=== PATIENT | female | born 1970 | race Caucasian/White ===

== ENCOUNTER → 2019-07-21 | Outpatient (CLI) | payer MEDICAID | END | disposition home or self-care (01) | LOC: CFH 10:01 | PROVIDERS: ATTEND Internal Medicine | DX: J98.6 Disorders of diaphragm (principal); J45.51 Severe persistent asthma with (acute) exacerbation | CPT/HCPCS: 71046 ==

== ENCOUNTER 2020-08-30 17:49 | Inpatient (IN) | payer MEDICAID ==
[~2020-08-30] VITALS: Ht 162.6 cm; Wt 91.5 kg
[2020-08-30] MEDS ORDERED: DILTIAZEM 5 MG/ML, 5ML ONE (18:15)
--- NOTE | 2020-08-30 18:15 | NUR ---
PT BIB POV. PT BROUGHT STRAIGHT BACK TO ROOM 34 DUE TO WORK OF BREATHING. PT STATES SHE FEELS SHORT OF BREATH. PT O2 SAT 85% ON 15L NRB, RESPIRATORY RATE 40. RT AT BEDSIDE TO INITIATE OPTIFLOW. EKG DONE, PT IN AFIB AT RATE OF 180BPM. 15MG OF CARDIZEM GIVEN PER EMAR, PT HEART RATE CURRENTLY 98BPM. PT REPORTS SHE IS CURRENTLY NOT ON ANY BLOOD THINNING MEDICATIONS. PT HAS HX OF AFIB AND ASTHMA. PT RESTING IN [facility], MONITORING IN PLACE. WCTM.
--- NOTE | 2020-08-30 18:15 | NUR ---
TASK RN: PIV STARTED, LABS DRAWN, 1ST SET OF BLOOD CULTURES DRAWN FROM PIV START.
--- NOTE | 2020-08-30 18:24 | NUR ---
PT 90-91% W/ OPTIFLOW 50L AT 100%
[2020-08-30] MEDS ORDERED: DILTIAZEM 5 MG/ML, 5ML IV ONE (18:30)
[2020-08-30] MEDS ORDERED: SODIUM CHLORIDE FLUSH 10ML SYR IVF ONE (18:30)
[2020-08-30 18:40] LABS: MEAN CORPUSCULAR HGB CONC 32.6 g/dL (32.4-35.8); MEAN PLATELET VOLUME 7.4 fL (7.4-10.4); PLATELET COUNT 383 x10^3/uL (130-400); RED BLOOD COUNT 4.95 x10^6/uL (3.82-5.3); RED CELL DISTRIBUTION WIDTH 15.2 % (9.6-15.2)
[2020-08-30 18:48] LABS: ALANINE AMINOTRANSFERASE 31 U/L (12-78); ALBUMIN 2.8 g/dL (3.4-5.0); ANION GAP 11 mmol/L (5-15); CALCIUM 8.8 mg/dL (8.5-10.1); CHLORIDE 117 mmol/L (98-107); CREATININE 1.21 mg/dL (0.55-1.02)
--- NOTE | 2020-08-30 18:52 | NUR ---
REPORT GIVEN TO DEVORAH HOOPER.
[2020-08-30 18:53] LABS: ALKALINE PHOSPHATASE 171 U/L (45-117); BILIRUBIN,TOTAL 1.7 mg/dL (0.2-1.0); TOTAL PROTEIN 7.8 g/dL (6.4-8.2)
[2020-08-30 18:58] LABS: TROPONIN I 0.151 ng/mL (0.000-0.045)
[2020-08-30 19:13] LABS: MD YES
[2020-08-30 19:15] LABS: LYMPH#(MANUAL) 0.45 x10^3/uL (1-3.4); LYMPHS% (MANUAL) 3 % (22-44); METAMYELOCYTES# (MANUAL) 0.15 x10^3/uL (0-0); METAMYELOCYTES% (MANUAL) 1 % (0-1); MONOS#(MANUAL) 1.04 x10^3/uL (0.3-2.7); MONOS% (MANUAL) 7 % (2-9)
[2020-08-30 19:17] LABS: MYELOCYTES# (MANUAL) 0.15 x10^3/uL (0-0); MYELOCYTES% (MANUAL) 1 % (0-0)
[2020-08-30 19:18] LABS: OTHER CELLS % (MANUAL) 2 % (0-0)
[2020-08-30 19:19] LABS: BAND#(MANUAL) 0.45 x10^3/uL; BANDS%(MANUAL) 3 % (0-7)
[2020-08-30 19:20] LABS: SEGS% (MANUAL) 83 % (42-75)
[2020-08-30 19:23] LABS: <PLATELET ESTIMATE> ADEQUATE; <PLT MORPHOLOGY> NORMAL PLT MORPH; ANISOCYTOSIS 1+; OVALOCYTES 1+
[2020-08-30] MEDS ORDERED: POTASSIUM CHLORIDE 40 MEQ in SODIUM CHLORIDE 0.9% 500 ML IV ONE (19:30)
[2020-08-30] MEDS ORDERED: CEFTRIAXONE PMX 1GM/50ML 50 ML IV ONE (19:30)
[2020-08-30] MEDS ORDERED: CEFTRIAXONE PMX 1GM/50ML 50 ML ONE (19:30)
[2020-08-30] MEDS ORDERED: DOXYCYCLINE 100 MG in DEXTROSE 5% 250 ML IV SCH (19:30)
--- NOTE | 2020-08-30 20:12 | NUR ---
Pt calm in bed, A&O x 3. Pt with minimal labored breathing. Tolerating High flow cannula well. HR 90-100's. BP stable . Covid test sent to lab, Abx infusing. Attempting second line Repeat EKG done. Pt denies any more at this time. Will continue to monitor.
[2020-08-30] MEDS ORDERED: ASPIRIN 81 MG TABLET CHEW PO ONE (20:30)
[2020-08-30] MEDS ORDERED: ASPIRIN 81 MG TABLET CHEW ONE (20:44)
[2020-08-30] MEDS ORDERED: SODIUM CHLORIDE 0.9% 1,000 ML IV SCH (21:00)
[2020-08-30] MEDS ORDERED: ONDANSETRON ODT 4 MG PO PRN (21:00)
[2020-08-30] MEDS ORDERED: NITROGLYCERIN 0.4 MG BOTTLE (25 TABS) SL PRN (21:00)
[2020-08-30] MEDS ORDERED: BISACODYL 10 MG SUPP PR PRN (21:00)
--- NOTE | 2020-08-30 21:38 | NUR ---
Flu swab sent. K+ and Doxy infusing. Pt remains A&O, minimal distress. Tolerating high-flow NC well. Will continue to monitor.
--- NOTE | 2020-08-30 21:40 | NUR ---
Spoke with Irving SANTACRUZ about CT for patient. Decision to wait on CT d/t pt respiratory status, and concerns for lying patient down. Will attempt CT at a later time.
[2020-08-30 21:53] LABS: RAPID INFLUENZA A Negative (Negative); RAPID INFLUENZA B Negative (Negative)
[2020-08-30] MEDS: AZITHROMYCIN 500 MG in SODIUM CHLORIDE 0.9% 250 ML IV SCH (22:00)
--- NOTE | 2020-08-30 22:18 | NUR ---
Report to Chintan FAIRCHILD. Pt to room 507. [address] on [address]
[2020-08-30 22:43] VITALS: BP 99/64
[2020-08-30] MEDS: DILTIAZEM 125 MG in SODIUM CHLORIDE 0.9% 100 ML IV SCH (23:24)
[2020-08-30] MEDS: PLEASE ENTER ALLERGIES MC SCH (23:37)
[2020-08-31 01:07] LABS: TROPONIN I 0.154 ng/mL (0.000-0.045)
[2020-08-31 01:59] VITALS: BP 127/84
[2020-08-31] MEDS: PLEASE ENTER ALLERGIES MC SCH (03:00)
[2020-08-31 05:03] LABS: MEAN CORPUSCULAR HEMOGLOBIN 27.8 pg (27.0-34.8); MEAN CORPUSCULAR HGB CONC 32.7 g/dL (32.4-35.8); MEAN PLATELET VOLUME 7.3 fL (7.4-10.4); PLATELET COUNT 313 x10^3/uL (130-400); RED BLOOD COUNT 4.09 x10^6/uL (3.82-5.3); RED CELL DISTRIBUTION WIDTH 15.1 % (9.6-15.2)
[2020-08-31 05:52] LABS: MD YES
[2020-08-31 05:54] LABS: <PLATELET ESTIMATE> ADEQUATE; <PLT MORPHOLOGY> NORMAL PLT MORPH; ANISOCYTOSIS 1+; LYMPH#(MANUAL) 0.76 x10^3/uL (1-3.4); LYMPHS% (MANUAL) 6 % (22-44); MONOS#(MANUAL) 0.88 x10^3/uL (0.3-2.7); MONOS% (MANUAL) 7 % (2-9); MYELOCYTES# (MANUAL) 0.25 x10^3/uL (0-0); MYELOCYTES% (MANUAL) 2 % (0-0); OVALOCYTES 1+; SEG#(MANUAL) 10.71 x10^3/uL (1.8-6.8); SEGS% (MANUAL) 85 % (42-75)
[2020-08-31] MEDS ORDERED: ASPIRIN 81 MG TABLET EC PO SCH (06:00)
[2020-08-31 07:00] VITALS: BP 130/84
[2020-08-31 07:15] LABS: ALBUMIN 2.2 g/dL (3.4-5.0); ANION GAP 11 mmol/L (5-15); CALCIUM 7.9 mg/dL (8.5-10.1); CHLORIDE 122 mmol/L (98-107)
[2020-08-31 07:23] LABS: ALANINE AMINOTRANSFERASE 40 U/L (12-78); ALKALINE PHOSPHATASE 150 U/L (45-117); BILIRUBIN,TOTAL 1.8 mg/dL (0.2-1.0); CHOL/HDL RATIO 4.4; CHOLESTEROL, TOTAL 109 mg/dL (140-239); CREATININE 0.98 mg/dL (0.55-1.02); HDL CHOL % 23 % (28-40); HDL CHOLESTEROL (DIRECT) 25 mg/dL (40-60); LDL CHOLESTEROL,CALCULATED 59 mg/dL (54-169); LDL/HDL RATIO 2.4 (0.5-3.0); TOTAL PROTEIN 6.3 g/dL (6.4-8.2); TRIGLYCERIDES 123 mg/dL (50-200); TROPONIN I 0.104 ng/mL (0.000-0.045); VLDL CHOLESTEROL 25 mg/dL (0-25)
[2020-08-31] MEDS: SENNA/DOCUSATE TABLET PO SCH (07:59)
[2020-08-31] MEDS ORDERED: PIPERACILLIN/TAZO/PMX 3.375GM 50 ML IV SCH (08:30)
[2020-08-31] MEDS ORDERED: VANCOMYCIN PER PHARMACY MC PRN (08:30)
[2020-08-31] MEDS ORDERED: PHARMACOKINETIC CONSULTATION MC ONE (09:00)
[2020-08-31] MEDS ORDERED: VANCOMYCIN 2,500 MG in SODIUM CHLORIDE 0.9% 500 ML IV ONE (09:00)
[2020-08-31] MEDS ORDERED: PHARMACOKINETIC MONITORING MC PRN (09:00)
[2020-08-31] MEDS ORDERED: FILTER 0.22 MICRON IV PRN (09:30)
[2020-08-31] MEDS: DILTIAZEM 125 MG in SODIUM CHLORIDE 0.9% 100 ML IV SCH (09:36)
[2020-08-31] MEDS: CEFTRIAXONE PMX 2GM/50ML 50 ML IVPB SCH (09:36)
[2020-08-31] MEDS ORDERED: ENOXAPARIN 40 MG/0.4 ML SQ SCH (10:00)
[2020-08-31] MEDS ORDERED: OMNIPAQUE 350 MG/ML, 100ML BOTTLE ONE (10:51)
[2020-08-31] MEDS: THIAMINE 100MG TABLET PO SCH (11:30)
[2020-08-31] MEDS ORDERED: REMDESIVIR 200 MG in SODIUM CHLORIDE 0.9% 250 ML IVPB ONE (12:00)
[2020-08-31] MEDS ORDERED: DEXAMETHASONE 4 MG/ML, 1ML IVPush SCH (12:00)
[2020-08-31] MEDS: CHOLECALCIFEROL 5,000u TAB PO SCH (12:00)
[2020-08-31] MEDS: ZINC SULFATE 220 MG CAPSULE PO SCH (12:00)
[2020-08-31] MEDS: LORazepam 2 MG/ML, 1ML IVPush PRN (12:03)
[2020-08-31] MEDS ORDERED: LIDOCAINE-MPF 1%, 2ML ENDO PRN (13:00)
[2020-08-31] MEDS ORDERED: PROPOFOL 10 MG/ML, 20ML IV ONE (13:00)
[2020-08-31] MEDS ORDERED: ROCURONIUM 10 MG/ML,10ML IVPush ONE (13:00)
[2020-08-31] MEDS ORDERED: AMIODARONE 150 MG in DEXTROSE 5% 97 ML IVPB ONE (13:00)
[2020-08-31] MEDS ORDERED: ENOXAPARIN 120MG/0.8ML SQ SCH (13:00)
[2020-08-31] MEDS ORDERED: PHARMACY MAY ADJ FOR RENAL FX MC SCH (13:00)
[2020-08-31] MEDS: AMIODARONE 450 MG in DEXTROSE 5% 241 ML IV PRN ×2 (13:01→18:29)
[2020-08-31] MEDS ORDERED: SODIUM BICARB 8.4%, 50ML SYRINGE ONE (13:58)
[2020-08-31] MEDS ORDERED: SODIUM BICARBONATE 1 MEQ/ML, 50ML VIAL IVPush ONE ×2 (14:00→14:15)
[2020-08-31] MEDS ORDERED: ALBUMIN HUMAN 25% 100 ML ONE (14:22)
[2020-08-31] MEDS ORDERED: ENOXAPARIN 80 MG/0.8 ML SQ ONE (14:30)
[2020-08-31] MEDS ORDERED: ALBUMIN HUMAN 25% 100 ML IV ONE ×2 (15:00→16:00)
[2020-08-31] MEDS ORDERED: LABETALOL 5MG/ML, 20ML IVPush PRN (16:00)
[2020-08-31] MEDS ORDERED: hydrALAzine 20 MG/ML, 1ML IVPush PRN (16:00)
[2020-08-31] MEDS: PROPOFOL 100 ML IV PRN ×3 (16:35→22:56)
[2020-08-31] MEDS: ASCORBIC ACID 500 MG TABLET PO SCH (16:43)
[2020-08-31] MEDS: FENTANYL PF 1,000 MCG in SODIUM CHLORIDE 0.9% 80 ML IV PRN (17:12)
[2020-08-31] MEDS ORDERED: ROCURONIUM 10MG/ML,5ML ONE (18:00)
[2020-08-31] MEDS ORDERED: PROPOFOL 10 MG/ML, 100ML IV ONE (18:00)
[2020-08-31] MEDS ORDERED: PROPOFOL 10 MG/ML, 20ML ONE (18:00)
[2020-08-31] MEDS ORDERED: SODIUM CHLORIDE 0.9% PF 10ML ONE (18:00)
[2020-08-31] MEDS: ALBUTEROL/IPRATROPIUM 2.5MG/0.5MG, 3 ML INLINE SCH ×2 (18:45→23:00)
[2020-08-31] MEDS ORDERED: CEFTRIAXONE PMX 1GM/50ML 50 ML IV SCH (20:00)
[2020-08-31] MEDS: AZITHROMYCIN 500 MG in SODIUM CHLORIDE 0.9% 250 ML IV SCH (22:20)
[2020-08-31] MEDS: ENOXAPARIN 120MG/0.8ML SQ SCH (22:56)
[2020-09-01] MEDS ORDERED: SODIUM CHLORIDE 0.9%, 500ML IVBOLUS ONE (00:30)
[2020-09-01] MEDS ORDERED: AMIODARONE 150 MG in DEXTROSE 5% 100 ML IV ONE (00:30)
[2020-09-01] MEDS: PROPOFOL 100 ML IV PRN ×7 (01:48→22:07)
[2020-09-01] MEDS: ALBUTEROL/IPRATROPIUM 2.5MG/0.5MG, 3 ML INLINE SCH ×6 (03:00→23:00)
[2020-09-01 04:33] LABS: MEAN CORPUSCULAR HEMOGLOBIN 27.9 pg (27.0-34.8); MEAN CORPUSCULAR HGB CONC 32.6 g/dL (32.4-35.8); MEAN PLATELET VOLUME 7.4 fL (7.4-10.4); PLATELET COUNT 278 x10^3/uL (130-400); RED BLOOD COUNT 3.28 x10^6/uL (3.82-5.3); RED CELL DISTRIBUTION WIDTH 15.2 % (9.6-15.2)
[2020-09-01 04:44] LABS: ALANINE AMINOTRANSFERASE 31 U/L (12-78); ALBUMIN 2.5 g/dL (3.4-5.0); ANION GAP 9 mmol/L (5-15); CALCIUM 7.4 mg/dL (8.5-10.1); CHLORIDE 123 mmol/L (98-107); CREATININE 0.94 mg/dL (0.55-1.02)
[2020-09-01 04:47] LABS: ALKALINE PHOSPHATASE 113 U/L (45-117); BILIRUBIN,TOTAL 1.4 mg/dL (0.2-1.0); TOTAL PROTEIN 6.2 g/dL (6.4-8.2)
[2020-09-01 05:04] LABS: MD YES
[2020-09-01 05:08] LABS: ANISOCYTOSIS 1+; BAND#(MANUAL) 0.35 x10^3/uL; BANDS%(MANUAL) 3 % (0-7); LYMPH#(MANUAL) 0.71 x10^3/uL (1-3.4); LYMPHS% (MANUAL) 6 % (22-44); MONOS#(MANUAL) 0.71 x10^3/uL (0.3-2.7); MONOS% (MANUAL) 6 % (2-9); POLYCHROMASIA 1+; SEG#(MANUAL) 10.03 x10^3/uL (1.8-6.8); SEGS% (MANUAL) 85 % (42-75)
[2020-09-01 05:09] LABS: <PLATELET ESTIMATE> ADEQUATE; <PLT MORPHOLOGY> NORMAL PLT MORPH; TEAR DROPS 1+
[2020-09-01] MEDS: AMIODARONE 450 MG in DEXTROSE 5% 241 ML IV PRN ×2 (05:26→16:14)
[2020-09-01] MEDS: ASPIRIN 81 MG TABLET CHEW PO SCH (05:54)
[2020-09-01] MEDS: FUROSEMIDE 40 MG/4 ML IV SCH ×2 (07:59→16:57)
[2020-09-01] MEDS: POTASSIUM CHLORIDE 20 MEQ PACKET PO SCH ×3 (07:59→20:09)
[2020-09-01] MEDS: ZINC SULFATE 220 MG CAPSULE PO SCH (08:57)
[2020-09-01] MEDS: SENNA/DOCUSATE TABLET PO SCH (08:57)
[2020-09-01] MEDS: ASCORBIC ACID 500 MG TABLET PO SCH ×2 (08:58→16:56)
[2020-09-01] MEDS: CHOLECALCIFEROL 5,000u TAB PO SCH (08:58)
[2020-09-01] MEDS: THIAMINE 100MG TABLET PO SCH (08:58)
[2020-09-01] MEDS: DEXAMETHASONE 4 MG/ML, 1ML IVPush SCH (08:58)
[2020-09-01] MEDS: FENTANYL PF 1,000 MCG in SODIUM CHLORIDE 0.9% 80 ML IV PRN (09:43)
[2020-09-01] MEDS: CEFTRIAXONE PMX 2GM/50ML 50 ML IVPB SCH (09:43)
[2020-09-01] MEDS: ENOXAPARIN 120MG/0.8ML SQ SCH ×2 (09:43→20:30)
[2020-09-01] MEDS: REMDESIVIR 100 MG in SODIUM CHLORIDE 0.9% 250 ML IVPB SCH (11:35)
[2020-09-01] MEDS: FILTER 0.22 MICRON IV PRN (16:14)
[2020-09-01] MEDS: AZITHROMYCIN 500 MG in SODIUM CHLORIDE 0.9% 250 ML IV SCH (20:09)
[2020-09-01] MEDS: ACETAMINOPHEN 325 MG TABLET PO PRN (22:12)
[2020-09-02] MEDS: PROPOFOL 100 ML IV PRN ×6 (01:28→23:24)
[2020-09-02] MEDS: FENTANYL PF 1,000 MCG in SODIUM CHLORIDE 0.9% 80 ML IV PRN ×2 (02:13→18:04)
[2020-09-02] MEDS: ALBUTEROL/IPRATROPIUM 2.5MG/0.5MG, 3 ML INLINE SCH ×6 (03:00→23:00)
[2020-09-02] MEDS: ASPIRIN 81 MG TABLET CHEW PO SCH (05:07)
[2020-09-02] MEDS: AMIODARONE 450 MG in DEXTROSE 5% 241 ML IV PRN ×2 (05:08→18:03)
[2020-09-02 05:23] LABS: CHLORIDE 120 mmol/L (98-107)
[2020-09-02 05:26] LABS: BASOPHILS % (AUTO) 0 % (0-1); EOSINOPHILS % (AUTO) 1 % (1-7); LYMPHOCYTES % (AUTO) 8 % (22-44); MEAN CORPUSCULAR HEMOGLOBIN 28.1 pg (27.0-34.8); MEAN CORPUSCULAR HGB CONC 32.7 g/dL (32.4-35.8); MEAN PLATELET VOLUME 7.8 fL (7.4-10.4); MONOCYTES % (AUTO) 7 % (2-9); NEUTROPHILS % (AUTO) 84 % (42-75); PLATELET COUNT 305 x10^3/uL (130-400); RED BLOOD COUNT 3.54 x10^6/uL (3.82-5.3); RED CELL DISTRIBUTION WIDTH 15.1 % (9.6-15.2)
[2020-09-02 05:30] LABS: ALANINE AMINOTRANSFERASE 32 U/L (12-78); ALBUMIN 2.5 g/dL (3.4-5.0); ALKALINE PHOSPHATASE 113 U/L (45-117); ANION GAP 10 mmol/L (5-15); BILIRUBIN,TOTAL 0.9 mg/dL (0.2-1.0); CALCIUM 7.7 mg/dL (8.5-10.1); CREATININE 0.98 mg/dL (0.55-1.02); TOTAL PROTEIN 6.2 g/dL (6.4-8.2)
[2020-09-02 06:31] LABS: MD SCAN
[2020-09-02] MEDS: FUROSEMIDE 40 MG/4 ML IV SCH ×2 (07:23→18:00)
[2020-09-02] MEDS: POTASSIUM CHLORIDE 20 MEQ PACKET PO SCH ×3 (07:23→20:54)
[2020-09-02] MEDS: ZINC SULFATE 220 MG CAPSULE PO SCH (09:01)
[2020-09-02] MEDS: THIAMINE 100MG TABLET PO SCH (09:01)
[2020-09-02] MEDS: CHOLECALCIFEROL 5,000u TAB PO SCH (09:01)
[2020-09-02] MEDS: FAMOTIDINE 20 MG TABLET PO/NG SCH ×2 (09:01→20:54)
[2020-09-02] MEDS: SENNA/DOCUSATE TABLET PO SCH (09:01)
[2020-09-02] MEDS: ASCORBIC ACID 500 MG TABLET PO SCH ×2 (09:02→18:00)
[2020-09-02] MEDS: DEXAMETHASONE 4 MG/ML, 1ML IVPush SCH (09:02)
[2020-09-02] MEDS: METHYLNALTREXONE 12 MG/0.6 ML SYR SQ SCH (09:10)
[2020-09-02] MEDS: CEFTRIAXONE PMX 2GM/50ML 50 ML IVPB SCH (09:53)
[2020-09-02] MEDS: ENOXAPARIN 120MG/0.8ML SQ SCH (09:53)
[2020-09-02] MEDS: REMDESIVIR 100 MG in SODIUM CHLORIDE 0.9% 250 ML IVPB SCH (11:41)
[2020-09-02] MEDS: ACETAMINOPHEN 325 MG TABLET PO PRN (11:45)
[2020-09-02] MEDS: AZITHROMYCIN 500 MG in SODIUM CHLORIDE 0.9% 250 ML IV SCH (20:54)
[2020-09-02] MEDS: ENOXAPARIN 100 MG/ML SQ SCH (20:55)
[2020-09-03] MEDS: ALBUTEROL/IPRATROPIUM 2.5MG/0.5MG, 3 ML INLINE SCH ×6 (03:00→23:20)
[2020-09-03] MEDS ORDERED: PIPERONYL BUTOXIDE/PYRETHRINS 4OZ. SHAMPOO TP SCH (04:30)
[2020-09-03 04:50] LABS: BASOPHILS % (AUTO) 1 % (0-1); EOSINOPHILS % (AUTO) 1 % (1-7); LYMPHOCYTES % (AUTO) 10 % (22-44); MEAN CORPUSCULAR HEMOGLOBIN 27.8 pg (27.0-34.8); MEAN PLATELET VOLUME 7.7 fL (7.4-10.4); MONOCYTES % (AUTO) 6 % (2-9); NEUTROPHILS % (AUTO) 83 % (42-75); PLATELET COUNT 314 x10^3/uL (130-400); RED BLOOD COUNT 3.95 x10^6/uL (3.82-5.3); RED CELL DISTRIBUTION WIDTH 15.5 % (9.6-15.2)
[2020-09-03 05:02] LABS: CHLORIDE 123 mmol/L (98-107)
[2020-09-03 05:11] LABS: ALANINE AMINOTRANSFERASE 29 U/L (12-78); ALBUMIN 2.5 g/dL (3.4-5.0); ALKALINE PHOSPHATASE 110 U/L (45-117); ANION GAP 8 mmol/L (5-15); BILIRUBIN,TOTAL 0.7 mg/dL (0.2-1.0); CALCIUM 7.9 mg/dL (8.5-10.1); CREATININE 0.92 mg/dL (0.55-1.02); TOTAL PROTEIN 6.7 g/dL (6.4-8.2); TRIGLYCERIDES 144 mg/dL (50-200)
[2020-09-03 05:54] LABS: MD SCAN
[2020-09-03] MEDS: ASPIRIN 81 MG TABLET CHEW PO SCH (05:54)
[2020-09-03] MEDS: FENTANYL PF 1,000 MCG in SODIUM CHLORIDE 0.9% 80 ML IV PRN ×2 (06:38→16:59)
[2020-09-03] MEDS ORDERED: POTASSIUM CHLORIDE 20 MEQ PACKET PO SCH ×2 (09:00)
[2020-09-03] MEDS: FUROSEMIDE 40 MG/4 ML IV SCH ×2 (09:00→17:17)
[2020-09-03] MEDS: SENNA/DOCUSATE TABLET PO SCH (09:01)
[2020-09-03] MEDS: FAMOTIDINE 20 MG TABLET PO/NG SCH ×2 (09:01→20:27)
[2020-09-03] MEDS: POTASSIUM CHLORIDE 20 MEQ PACKET PO SCH ×2 (09:01→20:27)
[2020-09-03] MEDS: ZINC SULFATE 220 MG CAPSULE PO SCH (09:02)
[2020-09-03] MEDS: ASCORBIC ACID 500 MG TABLET PO SCH ×2 (09:02→17:00)
[2020-09-03] MEDS: CHOLECALCIFEROL 5,000u TAB PO SCH (09:02)
[2020-09-03] MEDS: THIAMINE 100MG TABLET PO SCH (09:02)
[2020-09-03] MEDS: METHYLNALTREXONE 12 MG/0.6 ML SYR SQ SCH (09:03)
[2020-09-03] MEDS: ENOXAPARIN 100 MG/ML SQ SCH (09:04)
[2020-09-03] MEDS: AMIODARONE 450 MG in DEXTROSE 5% 241 ML IV PRN ×2 (09:04→22:36)
[2020-09-03] MEDS: DEXAMETHASONE 4 MG/ML, 1ML IVPush SCH (10:57)
[2020-09-03] MEDS: CEFTRIAXONE PMX 2GM/50ML 50 ML IVPB SCH (10:57)
[2020-09-03] MEDS: REMDESIVIR 100 MG in SODIUM CHLORIDE 0.9% 250 ML IVPB SCH (12:32)
[2020-09-03] MEDS: ACETAMINOPHEN 325 MG TABLET PO PRN ×2 (14:30→20:30)
[2020-09-03] MEDS: PROPOFOL 100 ML IV PRN ×2 (17:37→22:35)
[2020-09-03] MEDS ORDERED: ENOXAPARIN 80 MG/0.8 ML SQ SCH (21:00)
[2020-09-03] MEDS ORDERED: AZITHROMYCIN 500 MG in SODIUM CHLORIDE 0.9% 250 ML IV SCH (21:30)
[2020-09-03] MEDS: FILTER 0.22 MICRON IV PRN (22:36)
[2020-09-04] MEDS: PROPOFOL 100 ML IV PRN ×5 (02:37→23:12)
[2020-09-04] MEDS: ALBUTEROL/IPRATROPIUM 2.5MG/0.5MG, 3 ML INLINE SCH ×6 (03:17→23:00)
[2020-09-04] MEDS: FENTANYL PF 1,000 MCG in SODIUM CHLORIDE 0.9% 80 ML IV PRN ×3 (04:11→23:17)
[2020-09-04] MEDS: ASPIRIN 81 MG TABLET CHEW PO SCH (04:22)
[2020-09-04 04:58] LABS: CHLORIDE 119 mmol/L (98-107)
[2020-09-04 05:05] LABS: ALANINE AMINOTRANSFERASE 27 U/L (12-78); ALBUMIN 2.1 g/dL (3.4-5.0); ALKALINE PHOSPHATASE 102 U/L (45-117); ANION GAP 7 mmol/L (5-15); BILIRUBIN,TOTAL 0.8 mg/dL (0.2-1.0); CREATININE 0.95 mg/dL (0.55-1.02); TOTAL PROTEIN 6.7 g/dL (6.4-8.2)
[2020-09-04 07:00] LABS: BASOPHILS % (AUTO) 1 % (0-1); EOSINOPHILS % (AUTO) 2 % (1-7); LYMPHOCYTES % (AUTO) 8 % (22-44); MEAN CORPUSCULAR HEMOGLOBIN 27.8 pg (27.0-34.8); MEAN CORPUSCULAR HGB CONC 32.7 g/dL (32.4-35.8); MEAN PLATELET VOLUME 8.6 fL (7.4-10.4); MONOCYTES % (AUTO) 5 % (2-9); NEUTROPHILS % (AUTO) 84 % (42-75); PLATELET COUNT 294 x10^3/uL (130-400); RED BLOOD COUNT 3.54 x10^6/uL (3.82-5.3); RED CELL DISTRIBUTION WIDTH 15.6 % (9.6-15.2)
[2020-09-04 07:33] LABS: MD SCAN
[2020-09-04] MEDS: FUROSEMIDE 40 MG/4 ML IV SCH ×2 (09:12→17:34)
[2020-09-04] MEDS: DEXAMETHASONE 4 MG/ML, 1ML IVPush SCH (09:13)
[2020-09-04] MEDS: METHYLNALTREXONE 12 MG/0.6 ML SYR SQ SCH (09:19)
[2020-09-04] MEDS: ZINC SULFATE 220 MG CAPSULE PO SCH (09:21)
[2020-09-04] MEDS: FAMOTIDINE 20 MG TABLET PO/NG SCH ×2 (09:21→20:27)
[2020-09-04] MEDS: SENNA/DOCUSATE TABLET PO SCH (09:21)
[2020-09-04] MEDS: CHOLECALCIFEROL 5,000u TAB PO SCH (09:21)
[2020-09-04] MEDS: ENOXAPARIN 100 MG/ML SQ SCH ×2 (09:21→20:26)
[2020-09-04] MEDS: ASCORBIC ACID 500 MG TABLET PO SCH ×2 (09:22→17:35)
[2020-09-04] MEDS: THIAMINE 100MG TABLET PO SCH (09:22)
[2020-09-04] MEDS ORDERED: CEFTRIAXONE PMX 2GM/50ML 50 ML IVPB SCH (10:00)
[2020-09-04] MEDS: REMDESIVIR 100 MG in SODIUM CHLORIDE 0.9% 250 ML IVPB SCH (12:31)
[2020-09-05] MEDS: FILTER 0.22 MICRON IV PRN (01:49)
[2020-09-05] MEDS: AMIODARONE 450 MG in DEXTROSE 5% 241 ML IV PRN (01:49)
[2020-09-05] MEDS: ALBUTEROL/IPRATROPIUM 2.5MG/0.5MG, 3 ML INLINE SCH ×6 (02:59→22:54)
[2020-09-05 03:48] LABS: BASOPHILS % (AUTO) 1 % (0-1); EOSINOPHILS % (AUTO) 1 % (1-7); LYMPHOCYTES % (AUTO) 9 % (22-44); MEAN CORPUSCULAR HEMOGLOBIN 27.3 pg (27.0-34.8); MEAN CORPUSCULAR HGB CONC 31.4 g/dL (32.4-35.8); MEAN PLATELET VOLUME 8.9 fL (7.4-10.4); MONOCYTES % (AUTO) 7 % (2-9); NEUTROPHILS % (AUTO) 83 % (42-75); PLATELET COUNT 290 x10^3/uL (130-400); RED BLOOD COUNT 3.71 x10^6/uL (3.82-5.3); RED CELL DISTRIBUTION WIDTH 15.7 % (9.6-15.2)
[2020-09-05 04:00] LABS: ANION GAP 6 mmol/L (5-15); CALCIUM 8.1 mg/dL (8.5-10.1); CHLORIDE 117 mmol/L (98-107); CREATININE 0.98 mg/dL (0.55-1.02)
[2020-09-05] MEDS: PROPOFOL 100 ML IV PRN ×4 (04:08→19:54)
[2020-09-05 04:19] LABS: MD SCAN
[2020-09-05] MEDS: ASPIRIN 81 MG TABLET CHEW PO SCH (06:28)
[2020-09-05] MEDS: ZINC SULFATE 220 MG CAPSULE PO SCH (08:45)
[2020-09-05] MEDS: FAMOTIDINE 20 MG TABLET PO/NG SCH ×2 (08:46→20:38)
[2020-09-05] MEDS: SENNA/DOCUSATE TABLET PO SCH (08:46)
[2020-09-05] MEDS: THIAMINE 100MG TABLET PO SCH (08:46)
[2020-09-05] MEDS: FUROSEMIDE 40 MG/4 ML IV SCH ×2 (08:47→17:13)
[2020-09-05] MEDS: ASCORBIC ACID 500 MG TABLET PO SCH ×2 (08:47→17:13)
[2020-09-05] MEDS: SULFAMETH./TRIMETHOPRIM DS 800MG/160MG TABLET PO SCH ×3 (08:47→19:02)
[2020-09-05] MEDS: POTASSIUM CHLORIDE 20 MEQ PACKET PO SCH ×2 (08:47→20:38)
[2020-09-05] MEDS: POLYETHYLENE GLYCOL 17 GM PACKET PO PRN (08:48)
[2020-09-05] MEDS: CHOLECALCIFEROL 5,000u TAB PO SCH (08:49)
[2020-09-05] MEDS: DEXAMETHASONE 4 MG/ML, 1ML IVPush SCH (08:49)
[2020-09-05] MEDS: METHYLNALTREXONE 12 MG/0.6 ML SYR SQ SCH (08:55)
[2020-09-05] MEDS: ENOXAPARIN 100 MG/ML SQ SCH ×2 (08:55→20:38)
[2020-09-05] MEDS: AMIODARONE 200 MG TABLET PO SCH ×2 (08:55→20:39)
[2020-09-05] MEDS: FENTANYL PF 1,000 MCG in SODIUM CHLORIDE 0.9% 80 ML IV PRN ×2 (09:52→19:55)
[2020-09-05] MEDS: ACETAMINOPHEN 325 MG TABLET PO PRN (20:38)
[2020-09-06] MEDS: SULFAMETH./TRIMETHOPRIM DS 800MG/160MG TABLET PO SCH ×4 (00:44→17:40)
[2020-09-06] MEDS: PROPOFOL 100 ML IV PRN ×4 (00:44→16:03)
[2020-09-06] MEDS: ALBUTEROL/IPRATROPIUM 2.5MG/0.5MG, 3 ML INLINE SCH ×6 (02:51→23:00)
[2020-09-06] MEDS: FENTANYL PF 1,000 MCG in SODIUM CHLORIDE 0.9% 80 ML IV PRN ×2 (03:21→14:08)
[2020-09-06 03:52] LABS: BASOPHILS % (AUTO) 1 % (0-1); EOSINOPHILS % (AUTO) 0 % (1-7); LYMPHOCYTES % (AUTO) 9 % (22-44); MD NO; MEAN CORPUSCULAR HEMOGLOBIN 27.2 pg (27.0-34.8); MEAN CORPUSCULAR HGB CONC 31.5 g/dL (32.4-35.8); MEAN PLATELET VOLUME 8.6 fL (7.4-10.4); MONOCYTES % (AUTO) 9 % (2-9); NEUTROPHILS % (AUTO) 81 % (42-75); PLATELET COUNT 327 x10^3/uL (130-400); RED BLOOD COUNT 3.69 x10^6/uL (3.82-5.3); RED CELL DISTRIBUTION WIDTH 15.6 % (9.6-15.2)
[2020-09-06 03:58] LABS: ANION GAP 7 mmol/L (5-15); CALCIUM 8.1 mg/dL (8.5-10.1); CHLORIDE 117 mmol/L (98-107); TRIGLYCERIDES 152 mg/dL (50-200)
[2020-09-06] MEDS: ASPIRIN 81 MG TABLET CHEW PO SCH (05:43)
[2020-09-06] MEDS: ENOXAPARIN 100 MG/ML SQ SCH ×2 (08:47→20:42)
[2020-09-06] MEDS: METHYLNALTREXONE 12 MG/0.6 ML SYR SQ SCH (08:47)
[2020-09-06] MEDS: FAMOTIDINE 20 MG TABLET PO/NG SCH ×2 (08:48→20:42)
[2020-09-06] MEDS: FUROSEMIDE 40 MG/4 ML IV SCH (08:48)
[2020-09-06] MEDS: ASCORBIC ACID 500 MG TABLET PO SCH ×2 (08:48→16:02)
[2020-09-06] MEDS: DEXAMETHASONE 4 MG/ML, 1ML IVPush SCH (08:48)
[2020-09-06] MEDS: SENNA/DOCUSATE TABLET PO SCH (08:48)
[2020-09-06] MEDS: THIAMINE 100MG TABLET PO SCH (08:49)
[2020-09-06] MEDS: ZINC SULFATE 220 MG CAPSULE PO SCH (08:49)
[2020-09-06] MEDS: AMIODARONE 200 MG TABLET PO SCH ×2 (08:49→20:43)
[2020-09-06] MEDS: CHOLECALCIFEROL 5,000u TAB PO SCH (08:50)
[2020-09-06] MEDS: ACETAMINOPHEN 325 MG TABLET PO PRN (16:02)
[2020-09-07] MEDS: SULFAMETH./TRIMETHOPRIM DS 800MG/160MG TABLET PO SCH ×5 (00:42→23:38)
[2020-09-07] MEDS: ALBUTEROL/IPRATROPIUM 2.5MG/0.5MG, 3 ML INLINE SCH ×6 (02:59→23:00)
[2020-09-07 05:06] LABS: BASOPHILS % (AUTO) 0 % (0-1); EOSINOPHILS % (AUTO) 2 % (1-7); LYMPHOCYTES % (AUTO) 9 % (22-44); MEAN CORPUSCULAR HEMOGLOBIN 27.5 pg (27.0-34.8); MEAN CORPUSCULAR HGB CONC 31.4 g/dL (32.4-35.8); MEAN PLATELET VOLUME 8.6 fL (7.4-10.4); MONOCYTES % (AUTO) 10 % (2-9); NEUTROPHILS % (AUTO) 79 % (42-75); PLATELET COUNT 358 x10^3/uL (130-400); RED BLOOD COUNT 3.81 x10^6/uL (3.82-5.3); RED CELL DISTRIBUTION WIDTH 15.5 % (9.6-15.2)
[2020-09-07 05:15] LABS: ANION GAP 5 mmol/L (5-15); CALCIUM 8.3 mg/dL (8.5-10.1); CHLORIDE 119 mmol/L (98-107); CREATININE 1.09 mg/dL (0.55-1.02)
[2020-09-07 05:49] LABS: MD SCAN
[2020-09-07] MEDS: ASPIRIN 81 MG TABLET CHEW PO SCH (06:10)
[2020-09-07] MEDS: PROPOFOL 100 ML IV PRN ×3 (06:10→23:39)
[2020-09-07] MEDS ORDERED: POTASSIUM CHLORIDE 10% 40 MEQ/30 ML UDC PO ONE (07:00)
[2020-09-07] MEDS ORDERED: POTASSIUM CHLORIDE 20 MEQ TAB.ER.PRT PO ONE (07:30)
[2020-09-07] MEDS ORDERED: MAGNESIUM CITRATE 300ML ORAL SOL PO PRN (08:30)
[2020-09-07] MEDS: FENTANYL PF 1,000 MCG in SODIUM CHLORIDE 0.9% 80 ML IV PRN (09:17)
[2020-09-07] MEDS: THIAMINE 100MG TABLET PO SCH (09:18)
[2020-09-07] MEDS: DEXAMETHASONE 4 MG/ML, 1ML IVPush SCH (09:18)
[2020-09-07] MEDS: ZINC SULFATE 220 MG CAPSULE PO SCH (09:18)
[2020-09-07] MEDS: SENNA/DOCUSATE TABLET PO SCH (09:18)
[2020-09-07] MEDS: FUROSEMIDE 40 MG/4 ML IV SCH (09:18)
[2020-09-07] MEDS: AMIODARONE 200 MG TABLET PO SCH ×2 (09:18→20:46)
[2020-09-07] MEDS: ASCORBIC ACID 500 MG TABLET PO SCH ×2 (09:19→17:05)
[2020-09-07] MEDS: ENOXAPARIN 100 MG/ML SQ SCH ×2 (09:19→20:52)
[2020-09-07] MEDS: CHOLECALCIFEROL 5,000u TAB PO SCH (09:19)
[2020-09-07] MEDS: METHYLNALTREXONE 12 MG/0.6 ML SYR SQ SCH (09:19)
[2020-09-07] MEDS: FAMOTIDINE 20 MG TABLET PO/NG SCH ×2 (09:20→20:46)
[2020-09-07] MEDS ORDERED: METOPROLOL 1 MG/ML, 5ML IVPush ONE (11:00)
[2020-09-07] MEDS: ACETAMINOPHEN 325 MG TABLET PO PRN ×2 (12:38→20:45)
[2020-09-07] MEDS: POLYETHYLENE GLYCOL 17 GM PACKET PO PRN (20:45)
[2020-09-08] MEDS: ALBUTEROL/IPRATROPIUM 2.5MG/0.5MG, 3 ML INLINE SCH ×6 (03:00→23:00)
[2020-09-08 04:25] LABS: BASOPHILS % (AUTO) 1 % (0-1); EOSINOPHILS % (AUTO) 0 % (1-7); LYMPHOCYTES % (AUTO) 12 % (22-44); MEAN CORPUSCULAR HEMOGLOBIN 27.7 pg (27.0-34.8); MEAN CORPUSCULAR HGB CONC 32.2 g/dL (32.4-35.8); MEAN PLATELET VOLUME 8.7 fL (7.4-10.4); MONOCYTES % (AUTO) 12 % (2-9); NEUTROPHILS % (AUTO) 76 % (42-75); PLATELET COUNT 439 x10^3/uL (130-400); RED CELL DISTRIBUTION WIDTH 15.1 % (9.6-15.2)
[2020-09-08 04:32] LABS: ANION GAP 4 mmol/L (5-15); CALCIUM 8.4 mg/dL (8.5-10.1); CHLORIDE 119 mmol/L (98-107); CREATININE 1.19 mg/dL (0.55-1.02)
[2020-09-08 05:39] LABS: MD SCAN
[2020-09-08] MEDS: SULFAMETH./TRIMETHOPRIM DS 800MG/160MG TABLET PO SCH ×3 (05:58→17:38)
[2020-09-08] MEDS: ASPIRIN 81 MG TABLET CHEW PO SCH (05:58)
[2020-09-08] MEDS ORDERED: MAGNESIUM CITRATE 300ML ORAL SOL PO ONE (08:30)
[2020-09-08] MEDS: ENOXAPARIN 100 MG/ML SQ SCH ×2 (08:44→20:12)
[2020-09-08] MEDS: ASCORBIC ACID 500 MG TABLET PO SCH ×2 (08:44→15:46)
[2020-09-08] MEDS: FUROSEMIDE 40 MG/4 ML IV SCH (08:45)
[2020-09-08] MEDS: DEXAMETHASONE 4 MG/ML, 1ML IVPush SCH (08:46)
[2020-09-08] MEDS: AMIODARONE 200 MG TABLET PO SCH ×2 (08:47→20:12)
[2020-09-08] MEDS: FAMOTIDINE 20 MG TABLET PO/NG SCH ×2 (08:48→20:13)
[2020-09-08] MEDS: THIAMINE 100MG TABLET PO SCH (08:48)
[2020-09-08] MEDS: ZINC SULFATE 220 MG CAPSULE PO SCH (08:48)
[2020-09-08] MEDS: SENNA/DOCUSATE TABLET PO SCH (08:48)
[2020-09-08] MEDS: METHYLNALTREXONE 12 MG/0.6 ML SYR SQ SCH (08:48)
[2020-09-08] MEDS: CHOLECALCIFEROL 5,000u TAB PO SCH (08:48)
[2020-09-08] MEDS: PROPOFOL 100 ML IV PRN ×2 (08:49→15:46)
[2020-09-08] MEDS: ACETAMINOPHEN 325 MG TABLET PO PRN (09:50)
[2020-09-08] MEDS ORDERED: METOPROLOL 1 MG/ML, 5ML ONE (10:20)
[2020-09-08] MEDS ORDERED: METOPROLOL 1 MG/ML, 5ML IVPush STA (10:23)
[2020-09-08] MEDS: morphine SULFATE 10 MG/ML, 1ML IVPush PRN (11:14)
[2020-09-08] MEDS: METOPROLOL TARTRATE 25 MG TAB PO SCH ×2 (13:03→20:13)
[2020-09-09] MEDS: SULFAMETH./TRIMETHOPRIM DS 800MG/160MG TABLET PO SCH ×4 (00:14→17:32)
[2020-09-09] MEDS: PROPOFOL 100 ML IV PRN ×2 (01:59→09:19)
[2020-09-09 02:57] LABS: MEAN CORPUSCULAR HEMOGLOBIN 27.7 pg (27.0-34.8); MEAN CORPUSCULAR HGB CONC 31.5 g/dL (32.4-35.8); MEAN PLATELET VOLUME 8.7 fL (7.4-10.4); PLATELET COUNT 418 x10^3/uL (130-400); RED BLOOD COUNT 4.13 x10^6/uL (3.82-5.3); RED CELL DISTRIBUTION WIDTH 15.3 % (9.6-15.2)
[2020-09-09] MEDS: ALBUTEROL/IPRATROPIUM 2.5MG/0.5MG, 3 ML INLINE SCH ×6 (03:00→23:00)
[2020-09-09 03:07] LABS: ANION GAP 5 mmol/L (5-15); CALCIUM 8.7 mg/dL (8.5-10.1); CHLORIDE 115 mmol/L (98-107); CREATININE 1.25 mg/dL (0.55-1.02); TRIGLYCERIDES 205 mg/dL (50-200)
[2020-09-09 03:22] LABS: MD YES
[2020-09-09 03:23] LABS: BAND#(MANUAL) 0.17 x10^3/uL; BANDS%(MANUAL) 1 % (0-7); EOS#(MANUAL) 0.17 x10^3/uL (0.0-0.4); EOS% (MANUAL) 1 % (1-7); LYMPH#(MANUAL) 2.03 x10^3/uL (1-3.4); LYMPHS% (MANUAL) 12 % (22-44); MONOS#(MANUAL) 1.86 x10^3/uL (0.3-2.7); MONOS% (MANUAL) 11 % (2-9); SEG#(MANUAL) 12.68 x10^3/uL (1.8-6.8); SEGS% (MANUAL) 75 % (42-75)
[2020-09-09 03:25] LABS: <PLATELET ESTIMATE> INCREASED; <PLT MORPHOLOGY> NORMAL PLT MORPH; ANISOCYTOSIS 1+; POLYCHROMASIA 1+
[2020-09-09] MEDS ORDERED: INSULIN LISPRO 100 UNITS/ML, PEN ONE (04:14)
[2020-09-09] MEDS: INSULIN LISPRO 100 UNITS/ML, PEN SQ-INSULIN SCH ×4 (04:20→20:39)
[2020-09-09] MEDS: METOPROLOL TARTRATE 25 MG TAB PO SCH ×3 (05:45→20:38)
[2020-09-09] MEDS: ASPIRIN 81 MG TABLET CHEW PO SCH (05:45)
[2020-09-09] MEDS: AMIODARONE 200 MG TABLET PO SCH ×2 (09:16→20:38)
[2020-09-09] MEDS: ASCORBIC ACID 500 MG TABLET PO SCH ×2 (09:16→15:34)
[2020-09-09] MEDS: DEXAMETHASONE 4 MG/ML, 1ML IVPush SCH (09:16)
[2020-09-09] MEDS: THIAMINE 100MG TABLET PO SCH (09:17)
[2020-09-09] MEDS: ZINC SULFATE 220 MG CAPSULE PO SCH (09:17)
[2020-09-09] MEDS: METHYLNALTREXONE 12 MG/0.6 ML SYR SQ SCH (09:17)
[2020-09-09] MEDS: SENNA/DOCUSATE TABLET PO SCH (09:17)
[2020-09-09] MEDS: INSULIN GLARGINE 100 UNITS/ML, PEN SQ-INSULIN SCH ×2 (09:18→20:39)
[2020-09-09] MEDS: CHOLECALCIFEROL 5,000u TAB PO SCH (09:43)
[2020-09-09] MEDS: ENOXAPARIN 30 MG/0.3 ML SQ SCH ×2 (11:42→23:00)
[2020-09-09] MEDS: ACETAMINOPHEN 325 MG TABLET PO PRN (17:33)
[2020-09-09] MEDS: FAMOTIDINE 20 MG TABLET PO/NG SCH (20:38)
[2020-09-10] MEDS: SULFAMETH./TRIMETHOPRIM DS 800MG/160MG TABLET PO SCH ×2 (00:21→05:33)
[2020-09-10] MEDS: ALBUTEROL/IPRATROPIUM 2.5MG/0.5MG, 3 ML INLINE SCH ×6 (03:00→23:00)
[2020-09-10] MEDS: INSULIN LISPRO 100 UNITS/ML, PEN SQ-INSULIN SCH ×4 (03:08→20:13)
[2020-09-10 03:39] LABS: MEAN CORPUSCULAR HGB CONC 31.9 g/dL (32.4-35.8); MEAN PLATELET VOLUME 9.2 fL (7.4-10.4); PLATELET COUNT 458 x10^3/uL (130-400); RED BLOOD COUNT 4.08 x10^6/uL (3.82-5.3); RED CELL DISTRIBUTION WIDTH 16.1 % (9.6-15.2)
[2020-09-10 03:47] LABS: ANION GAP 7 mmol/L (5-15); CALCIUM 8.7 mg/dL (8.5-10.1); CHLORIDE 114 mmol/L (98-107); CREATININE 1.25 mg/dL (0.55-1.02)
[2020-09-10 04:11] LABS: MD YES
[2020-09-10 04:13] LABS: EOS#(MANUAL) 0.38 x10^3/uL (0.0-0.4); EOS% (MANUAL) 2 % (1-7); LYMPH#(MANUAL) 1.52 x10^3/uL (1-3.4); LYMPHS% (MANUAL) 8 % (22-44); MONOS#(MANUAL) 0.76 x10^3/uL (0.3-2.7); MONOS% (MANUAL) 4 % (2-9); MYELOCYTES# (MANUAL) 0.38 x10^3/uL (0-0); MYELOCYTES% (MANUAL) 2 % (0-0); SEG#(MANUAL) 15.96 x10^3/uL (1.8-6.8); SEGS% (MANUAL) 84 % (42-75)
[2020-09-10 04:14] LABS: ANISOCYTOSIS 1+
[2020-09-10 04:15] LABS: <PLATELET ESTIMATE> INCREASED; <PLT MORPHOLOGY> NORMAL PLT MORPH; PMNS WITH VACUOLES 1+; POLYCHROMASIA 1+
[2020-09-10] MEDS ORDERED: PIPERONYL BUTOXIDE/PYRETHRINS 4OZ. SHAMPOO TP ONE (04:30)
[2020-09-10] MEDS: METOPROLOL TARTRATE 25 MG TAB PO SCH ×3 (05:33→20:26)
[2020-09-10] MEDS: ASPIRIN 81 MG TABLET CHEW PO SCH (05:34)
[2020-09-10] MEDS ORDERED: VANCOMYCIN PER PHARMACY MC PRN (07:00)
[2020-09-10 07:10] LABS: MICROSCOPIC INDICATED
[2020-09-10] MEDS ORDERED: VANCOMYCIN 2,300 MG in SODIUM CHLORIDE 0.9% 500 ML IV ONE (07:30)
[2020-09-10] MEDS ORDERED: PHARMACOKINETIC MONITORING MC PRN (07:30)
[2020-09-10] MEDS: ZINC SULFATE 220 MG CAPSULE PO SCH (07:58)
[2020-09-10] MEDS: PIPERACILLIN/TAZO/PMX 3.375GM 50 ML IV SCH ×3 (07:58→20:12)
[2020-09-10] MEDS: SENNA/DOCUSATE TABLET PO SCH (07:58)
[2020-09-10] MEDS: THIAMINE 100MG TABLET PO SCH (07:58)
[2020-09-10] MEDS: METHYLNALTREXONE 12 MG/0.6 ML SYR SQ SCH (07:59)
[2020-09-10] MEDS: AMIODARONE 200 MG TABLET PO SCH ×2 (07:59→20:13)
[2020-09-10] MEDS: CHOLECALCIFEROL 5,000u TAB PO SCH (07:59)
[2020-09-10] MEDS: ASCORBIC ACID 500 MG TABLET PO SCH (07:59)
[2020-09-10] MEDS: ACETAMINOPHEN 325 MG TABLET PO PRN ×3 (08:20→22:52)
[2020-09-10] MEDS: INSULIN GLARGINE 100 UNITS/ML, PEN SQ-INSULIN SCH ×2 (08:31→20:14)
[2020-09-10] MEDS: ENOXAPARIN 30 MG/0.3 ML SQ SCH ×2 (12:12→23:00)
[2020-09-10] MEDS: FAMOTIDINE 20 MG TABLET PO/NG SCH (20:13)
[2020-09-11] MEDS: INSULIN LISPRO 100 UNITS/ML, PEN SQ-INSULIN SCH ×4 (02:05→20:18)
[2020-09-11] MEDS: PIPERACILLIN/TAZO/PMX 3.375GM 50 ML IV SCH ×4 (02:05→20:17)
[2020-09-11] MEDS: ALBUTEROL/IPRATROPIUM 2.5MG/0.5MG, 3 ML INLINE SCH ×6 (02:38→23:00)
[2020-09-11] MEDS: METOPROLOL TARTRATE 25 MG TAB PO SCH ×3 (04:23→20:17)
[2020-09-11 04:45] LABS: BASOPHILS % (AUTO) 0 % (0-1); EOSINOPHILS % (AUTO) 2 % (1-7); LYMPHOCYTES % (AUTO) 12 % (22-44); MEAN CORPUSCULAR HEMOGLOBIN 28.1 pg (27.0-34.8); MEAN CORPUSCULAR HGB CONC 31.7 g/dL (32.4-35.8); MEAN PLATELET VOLUME 8.8 fL (7.4-10.4); MONOCYTES % (AUTO) 6 % (2-9); NEUTROPHILS % (AUTO) 80 % (42-75); PLATELET COUNT 403 x10^3/uL (130-400); RED BLOOD COUNT 3.87 x10^6/uL (3.82-5.3); RED CELL DISTRIBUTION WIDTH 15.4 % (9.6-15.2)
[2020-09-11 04:51] LABS: ANION GAP 8 mmol/L (5-15); CALCIUM 8.6 mg/dL (8.5-10.1); CHLORIDE 114 mmol/L (98-107); CREATININE 1.35 mg/dL (0.55-1.02)
[2020-09-11] MEDS: ASPIRIN 81 MG TABLET CHEW PO SCH (05:28)
[2020-09-11 05:44] LABS: MD SCAN
[2020-09-11] MEDS ORDERED: POTASSIUM CHLORIDE 20 MEQ PACKET PO ONE (07:30)
[2020-09-11] MEDS: SENNA/DOCUSATE TABLET PO SCH (07:50)
[2020-09-11] MEDS: AMIODARONE 200 MG TABLET PO SCH ×2 (07:51→20:17)
[2020-09-11] MEDS: INSULIN GLARGINE 100 UNITS/ML, PEN SQ-INSULIN SCH ×2 (08:00→20:18)
[2020-09-11] MEDS: POLYETHYLENE GLYCOL 17 GM PACKET PO PRN (08:02)
[2020-09-11] MEDS ORDERED: FUROSEMIDE 40 MG/4 ML IV ONE (10:00)
[2020-09-11] MEDS: ACETAMINOPHEN 325 MG TABLET PO PRN ×2 (10:26→15:05)
[2020-09-11] MEDS: VANCOMYCIN 1,800 MG in SODIUM CHLORIDE 0.9% 250 ML IV SCH (10:27)
[2020-09-11] MEDS ORDERED: HEPARIN 5,000 UNITS/ML, 1ML IV ONE (11:00)
[2020-09-11] MEDS: HEPARIN 25,000 UNITS/250ML PMX 250 ML IV PRN (11:36)
[2020-09-11] MEDS ORDERED: AMIODARONE 150 MG in DEXTROSE 5% 100 ML IV ONE (12:30)
[2020-09-11] MEDS ORDERED: FILTER 0.22 MICRON FOR AMIODARONE IV PRN (12:30)
[2020-09-11] MEDS: PROPOFOL 100 ML IV PRN (13:25)
[2020-09-11] MEDS ORDERED: ETOMIDATE 20 MG/10 ML IVPush ONE (13:30)
[2020-09-11] MEDS ORDERED: PROPOFOL 10 MG/ML, 100ML IV ONE (19:38)
[2020-09-11] MEDS ORDERED: ETOMIDATE 20 MG/10 ML ONE (19:38)
[2020-09-11] MEDS: FAMOTIDINE 20 MG TABLET PO/NG SCH (20:17)
[2020-09-11] MEDS: HEPARIN 5,000 UNITS/ML, 1ML IV PRN (20:42)
[2020-09-12] MEDS: PIPERACILLIN/TAZO/PMX 3.375GM 50 ML IV SCH ×4 (02:35→20:06)
[2020-09-12] MEDS: ACETAMINOPHEN 325 MG TABLET PO PRN (02:35)
[2020-09-12] MEDS: ALBUTEROL/IPRATROPIUM 2.5MG/0.5MG, 3 ML INLINE SCH ×6 (03:00→23:00)
[2020-09-12] MEDS: PROPOFOL 100 ML IV PRN (03:04)
[2020-09-12 03:17] LABS: BASOPHILS % (AUTO) 0 % (0-1); EOSINOPHILS % (AUTO) 3 % (1-7); LYMPHOCYTES % (AUTO) 13 % (22-44); MEAN CORPUSCULAR HEMOGLOBIN 27.7 pg (27.0-34.8); MEAN CORPUSCULAR HGB CONC 30.6 g/dL (32.4-35.8); MONOCYTES % (AUTO) 5 % (2-9); NEUTROPHILS % (AUTO) 79 % (42-75); PLATELET COUNT 357 x10^3/uL (130-400); RED BLOOD COUNT 4.12 x10^6/uL (3.82-5.3); RED CELL DISTRIBUTION WIDTH 16.3 % (9.6-15.2)
[2020-09-12 03:28] LABS: ANION GAP 8 mmol/L (5-15); CALCIUM 8.4 mg/dL (8.5-10.1); CHLORIDE 114 mmol/L (98-107)
[2020-09-12 03:29] LABS: TRIGLYCERIDES 188 mg/dL (50-200)
[2020-09-12] MEDS: INSULIN LISPRO 100 UNITS/ML, PEN SQ-INSULIN SCH ×4 (03:39→20:07)
[2020-09-12 04:11] LABS: MD SCAN
[2020-09-12] MEDS: METOPROLOL TARTRATE 25 MG TAB PO SCH ×3 (05:00→20:08)
[2020-09-12] MEDS: ASPIRIN 81 MG TABLET CHEW PO SCH (06:00)
[2020-09-12] MEDS ORDERED: PROPOFOL 100 ML IV PRN (08:30)
[2020-09-12] MEDS: SENNA/DOCUSATE TABLET PO SCH (09:38)
[2020-09-12] MEDS: AMIODARONE 200 MG TABLET PO SCH ×2 (09:38→20:08)
[2020-09-12] MEDS: INSULIN GLARGINE 100 UNITS/ML, PEN SQ-INSULIN SCH ×2 (09:39→20:07)
[2020-09-12] MEDS: VANCOMYCIN 1,800 MG in SODIUM CHLORIDE 0.9% 250 ML IV SCH (11:32)
[2020-09-12] MEDS: HEPARIN 25,000 UNITS/250ML PMX 250 ML IV PRN (11:33)
[2020-09-12] MEDS: HEPARIN 5,000 UNITS/ML, 1ML IV PRN (11:34)
[2020-09-12] MEDS: FAMOTIDINE 20 MG TABLET PO/NG SCH (20:08)
[2020-09-13] MEDS: PIPERACILLIN/TAZO/PMX 3.375GM 50 ML IV SCH ×4 (02:24→19:48)
[2020-09-13] MEDS: INSULIN LISPRO 100 UNITS/ML, PEN SQ-INSULIN SCH ×4 (02:25→20:53)
[2020-09-13] MEDS: ALBUTEROL/IPRATROPIUM 2.5MG/0.5MG, 3 ML INLINE SCH ×6 (02:58→22:52)
[2020-09-13 04:39] LABS: BASOPHILS % (AUTO) 0 % (0-1); EOSINOPHILS % (AUTO) 2 % (1-7); LYMPHOCYTES % (AUTO) 11 % (22-44); MEAN CORPUSCULAR HEMOGLOBIN 28.2 pg (27.0-34.8); MEAN CORPUSCULAR HGB CONC 31.2 g/dL (32.4-35.8); MEAN PLATELET VOLUME 9.2 fL (7.4-10.4); MONOCYTES % (AUTO) 5 % (2-9); NEUTROPHILS % (AUTO) 83 % (42-75); PLATELET COUNT 271 x10^3/uL (130-400); RED BLOOD COUNT 3.65 x10^6/uL (3.82-5.3); RED CELL DISTRIBUTION WIDTH 16.3 % (9.6-15.2)
[2020-09-13 04:45] LABS: ANION GAP 9 mmol/L (5-15); CALCIUM 8.4 mg/dL (8.5-10.1); CHLORIDE 114 mmol/L (98-107); CREATININE 0.96 mg/dL (0.55-1.02)
[2020-09-13 05:03] LABS: MD SCAN
[2020-09-13] MEDS: METOPROLOL TARTRATE 25 MG TAB PO SCH ×3 (05:37→20:52)
[2020-09-13] MEDS: ASPIRIN 81 MG TABLET CHEW PO SCH (05:37)
[2020-09-13] MEDS ORDERED: POTASSIUM CHLORIDE 20 MEQ PACKET PO SCH (08:00)
[2020-09-13] MEDS: INSULIN GLARGINE 100 UNITS/ML, PEN SQ-INSULIN SCH ×2 (08:30→20:53)
[2020-09-13] MEDS: VANCOMYCIN 1,800 MG in SODIUM CHLORIDE 0.9% 250 ML IV SCH (08:34)
[2020-09-13] MEDS ORDERED: POTASSIUM CHLORIDE 40 MEQ in SODIUM CHLORIDE 0.9% 500 ML IV ONE (09:00)
[2020-09-13] MEDS: AMIODARONE 200 MG TABLET PO SCH ×2 (09:00→20:52)
[2020-09-13] MEDS: SENNA/DOCUSATE TABLET PO SCH (09:01)
[2020-09-13] MEDS: PROPOFOL 100 ML IV PRN (10:51)
[2020-09-13] MEDS ORDERED: FENTANYL PF 100 MCG/2ML ONE (13:04)
[2020-09-13] MEDS ORDERED: VECURONIUM 10 MG ONE (13:05)
[2020-09-13] MEDS ORDERED: FENTANYL PF 100 MCG/2ML IVPush ONE (13:30)
[2020-09-13] MEDS ORDERED: VECURONIUM 10 MG IVPush ONE (13:30)
[2020-09-13] MEDS: HEPARIN 25,000 UNITS/250ML PMX 250 ML IV PRN (17:17)
[2020-09-13] MEDS ORDERED: HEPARIN 5,000 UNITS/ML, 1ML IV ONE (18:00)
[2020-09-13] MEDS: FAMOTIDINE 20 MG TABLET PO/NG SCH (20:52)
[2020-09-13] MEDS: LORazepam 2 MG/ML, 1ML IVPush PRN (23:32)
[2020-09-14] MEDS: PIPERACILLIN/TAZO/PMX 3.375GM 50 ML IV SCH ×4 (01:57→20:53)
[2020-09-14] MEDS: ALBUTEROL/IPRATROPIUM 2.5MG/0.5MG, 3 ML INLINE SCH ×6 (02:13→23:00)
[2020-09-14] MEDS: INSULIN LISPRO 100 UNITS/ML, PEN SQ-INSULIN SCH ×4 (02:51→21:10)
[2020-09-14 03:09] LABS: BASOPHILS % (AUTO) 1 % (0-1); EOSINOPHILS % (AUTO) 3 % (1-7); LYMPHOCYTES % (AUTO) 9 % (22-44); MEAN CORPUSCULAR HEMOGLOBIN 28.6 pg (27.0-34.8); MEAN CORPUSCULAR HGB CONC 31.3 g/dL (32.4-35.8); MEAN PLATELET VOLUME 8.8 fL (7.4-10.4); MONOCYTES % (AUTO) 5 % (2-9); NEUTROPHILS % (AUTO) 82 % (42-75); PLATELET COUNT 230 x10^3/uL (130-400); RED BLOOD COUNT 3.35 x10^6/uL (3.82-5.3)
[2020-09-14 03:10] LABS: MD NO
[2020-09-14 03:14] LABS: ALANINE AMINOTRANSFERASE 52 U/L (12-78); ANION GAP 8 mmol/L (5-15); CALCIUM 8.1 mg/dL (8.5-10.1); CHLORIDE 117 mmol/L (98-107); CREATININE 0.87 mg/dL (0.55-1.02)
[2020-09-14 03:16] LABS: ALKALINE PHOSPHATASE 78 U/L (45-117); BILIRUBIN,TOTAL 0.5 mg/dL (0.2-1.0); TOTAL PROTEIN 6.2 g/dL (6.4-8.2)
[2020-09-14] MEDS: HEPARIN 5,000 UNITS/ML, 1ML IV PRN (05:04)
[2020-09-14] MEDS: METOPROLOL TARTRATE 25 MG TAB PO SCH ×3 (05:25→20:54)
[2020-09-14] MEDS: ASPIRIN 81 MG TABLET CHEW PO SCH (05:25)
[2020-09-14] MEDS: SENNA/DOCUSATE TABLET PO SCH (08:20)
[2020-09-14] MEDS ORDERED: POTASSIUM CHLORIDE 20 MEQ PACKET ONE (08:42)
[2020-09-14] MEDS: POTASSIUM CHLORIDE 20 MEQ PACKET PO SCH ×3 (08:47→20:54)
[2020-09-14] MEDS: FAMOTIDINE 20 MG TABLET PO/NG SCH ×2 (08:48→20:54)
[2020-09-14] MEDS: AMIODARONE 200 MG TABLET PO SCH ×2 (08:48→20:54)
[2020-09-14] MEDS: INSULIN GLARGINE 100 UNITS/ML, PEN SQ-INSULIN SCH ×2 (09:29→21:11)
[2020-09-14] MEDS: VANCOMYCIN 1,800 MG in SODIUM CHLORIDE 0.9% 250 ML IV SCH (09:30)
[2020-09-14] MEDS: HEPARIN 25,000 UNITS/250ML PMX 250 ML IV PRN (13:07)
[2020-09-14] MEDS: LORazepam 2 MG/ML, 1ML IVPush PRN (13:30)
[2020-09-15] MEDS: PIPERACILLIN/TAZO/PMX 3.375GM 50 ML IV SCH ×4 (02:05→20:34)
[2020-09-15] MEDS: ALBUTEROL/IPRATROPIUM 2.5MG/0.5MG, 3 ML INLINE SCH ×5 (03:00→19:30)
[2020-09-15] MEDS: INSULIN LISPRO 100 UNITS/ML, PEN SQ-INSULIN SCH ×4 (03:53→20:36)
[2020-09-15] MEDS: METOPROLOL TARTRATE 25 MG TAB PO SCH ×3 (06:17→20:35)
[2020-09-15] MEDS: ASPIRIN 81 MG TABLET CHEW PO SCH ×2 (06:17→09:07)
[2020-09-15] MEDS: LORazepam 2 MG/ML, 1ML IVPush PRN (07:17)
[2020-09-15] MEDS: VANCOMYCIN 1,800 MG in SODIUM CHLORIDE 0.9% 250 ML IV SCH (07:26)
[2020-09-15] MEDS ORDERED: MIDAZOLAM 1 MG/ML, 5ML ONE (08:13)
[2020-09-15] MEDS ORDERED: FENTANYL PF 100 MCG/2ML ONE (08:13)
[2020-09-15] MEDS: SENNA/DOCUSATE TABLET PO SCH (08:19)
[2020-09-15] MEDS ORDERED: MIDAZOLAM 1 MG/ML, 5ML IVPush ONE (08:30)
[2020-09-15] MEDS ORDERED: FENTANYL PF 100 MCG/2ML IVPush ONE (08:30)
[2020-09-15] MEDS: INSULIN GLARGINE 100 UNITS/ML, PEN SQ-INSULIN SCH ×2 (09:00→20:36)
[2020-09-15] MEDS ORDERED: PANTOPRAZOLE 40 MG IV IVPush SCH (09:00)
[2020-09-15] MEDS ORDERED: FAMOTIDINE 20 MG TABLET PO/NG SCH (09:00)
[2020-09-15] MEDS: AMIODARONE 200 MG TABLET PO SCH ×2 (09:07→20:35)
[2020-09-15] MEDS: PANTOPRAZOLE 40 MG IV IVPush SCH ×2 (09:07→20:34)
[2020-09-15 09:40] LABS: BASOPHILS % (AUTO) 1 % (0-1); EOSINOPHILS % (AUTO) 3 % (1-7); LYMPHOCYTES % (AUTO) 10 % (22-44); MEAN CORPUSCULAR HEMOGLOBIN 28.1 pg (27.0-34.8); MEAN CORPUSCULAR HGB CONC 30.8 g/dL (32.4-35.8); MEAN PLATELET VOLUME 8.6 fL (7.4-10.4); MONOCYTES % (AUTO) 4 % (2-9); NEUTROPHILS % (AUTO) 82 % (42-75); PLATELET COUNT 193 x10^3/uL (130-400); RED BLOOD COUNT 3.11 x10^6/uL (3.82-5.3)
[2020-09-15 09:41] LABS: MD NO
[2020-09-15 09:50] LABS: ANION GAP 6 mmol/L (5-15); CALCIUM 8.6 mg/dL (8.5-10.1); CHLORIDE 121 mmol/L (98-107); CREATININE 0.77 mg/dL (0.55-1.02); TRIGLYCERIDES 129 mg/dL (50-200)
[2020-09-16] MEDS: ALBUTEROL/IPRATROPIUM 2.5MG/0.5MG, 3 ML INLINE SCH ×7 (00:05→23:00)
[2020-09-16] MEDS: PIPERACILLIN/TAZO/PMX 3.375GM 50 ML IV SCH ×3 (03:03→14:33)
[2020-09-16] MEDS: INSULIN LISPRO 100 UNITS/ML, PEN SQ-INSULIN SCH ×4 (03:05→20:34)
[2020-09-16] MEDS: morphine SULFATE 10 MG/ML, 1ML IVPush PRN (03:34)
[2020-09-16 04:26] LABS: BASOPHILS % (AUTO) 1 % (0-1); EOSINOPHILS % (AUTO) 3 % (1-7); LYMPHOCYTES % (AUTO) 12 % (22-44); MEAN CORPUSCULAR HEMOGLOBIN 28.6 pg (27.0-34.8); MEAN CORPUSCULAR HGB CONC 31.2 g/dL (32.4-35.8); MEAN PLATELET VOLUME 8.5 fL (7.4-10.4); MONOCYTES % (AUTO) 5 % (2-9); NEUTROPHILS % (AUTO) 79 % (42-75); PLATELET COUNT 186 x10^3/uL (130-400); RED BLOOD COUNT 3.17 x10^6/uL (3.82-5.3); RED CELL DISTRIBUTION WIDTH 17.5 % (9.6-15.2)
[2020-09-16 04:28] LABS: MD NO
[2020-09-16 04:40] LABS: ANION GAP 7 mmol/L (5-15); CALCIUM 8.3 mg/dL (8.5-10.1); CHLORIDE 120 mmol/L (98-107); CREATININE 0.79 mg/dL (0.55-1.02)
[2020-09-16] MEDS: INSULIN GLARGINE 100 UNITS/ML, PEN SQ-INSULIN SCH ×2 (09:00→20:06)
[2020-09-16] MEDS: SENNA/DOCUSATE TABLET PO SCH (09:00)
[2020-09-16] MEDS: VANCOMYCIN 1,800 MG in SODIUM CHLORIDE 0.9% 250 ML IV SCH (09:12)
[2020-09-16] MEDS: PANTOPRAZOLE 40 MG IV IVPush SCH (09:14)
[2020-09-16] MEDS: AMIODARONE 200 MG TABLET PO SCH ×2 (09:14→20:33)
[2020-09-16] MEDS: ASPIRIN 81 MG TABLET CHEW PO SCH (09:14)
[2020-09-16] MEDS ORDERED: Enoxaparin 1 mg/kg protocol SQ SCH (09:30)
[2020-09-16] MEDS: METOPROLOL TARTRATE 25 MG TAB PO SCH ×2 (09:50→20:33)
[2020-09-16] MEDS: ENOXAPARIN 100 MG/ML SQ SCH ×2 (09:50→20:34)
[2020-09-16] MEDS: POTASSIUM CHLORIDE 20 MEQ PACKET PO SCH ×3 (11:00→18:01)
[2020-09-16] MEDS: OXYcodone/APAP 5/325MG TABLET GT PRN ×2 (12:01→20:33)
[2020-09-16] MEDS ORDERED: PIPERACILLIN/TAZO/PMX 3.375GM 50 ML IV SCH ×2 (15:30→20:30)
[2020-09-16] MEDS ORDERED: VANCOMYCIN 1,800 MG in SODIUM CHLORIDE 0.9% 250 ML IV SCH (15:30)
[2020-09-17] MEDS: ALBUTEROL/IPRATROPIUM 2.5MG/0.5MG, 3 ML INLINE SCH ×6 (03:00→22:58)
[2020-09-17] MEDS: INSULIN LISPRO 100 UNITS/ML, PEN SQ-INSULIN SCH ×4 (03:38→21:51)
[2020-09-17 05:43] LABS: BASOPHILS % (AUTO) 0 % (0-1); EOSINOPHILS % (AUTO) 1 % (1-7); LYMPHOCYTES % (AUTO) 8 % (22-44); MEAN CORPUSCULAR HEMOGLOBIN 28.9 pg (27.0-34.8); MEAN CORPUSCULAR HGB CONC 31.3 g/dL (32.4-35.8); MEAN PLATELET VOLUME 8.9 fL (7.4-10.4); MONOCYTES % (AUTO) 4 % (2-9); NEUTROPHILS % (AUTO) 86 % (42-75); PLATELET COUNT 191 x10^3/uL (130-400); RED BLOOD COUNT 3.09 x10^6/uL (3.82-5.3); RED CELL DISTRIBUTION WIDTH 17.7 % (9.6-15.2)
[2020-09-17 05:44] LABS: MD NO
[2020-09-17 05:53] LABS: ANION GAP 8 mmol/L (5-15); CALCIUM 8.7 mg/dL (8.5-10.1); CHLORIDE 120 mmol/L (98-107); CREATININE 0.67 mg/dL (0.55-1.02)
[2020-09-17] MEDS: INSULIN GLARGINE 100 UNITS/ML, PEN SQ-INSULIN SCH ×2 (09:00→21:51)
[2020-09-17] MEDS: SENNA/DOCUSATE TABLET PO SCH (09:00)
[2020-09-17] MEDS ORDERED: VANCOMYCIN 1,800 MG in SODIUM CHLORIDE 0.9% 250 ML IV SCH (09:00)
[2020-09-17] MEDS ORDERED: VANCOMYCIN PER PHARMACY MC PRN (09:02)
[2020-09-17] MEDS: PANTOPRAZOLE 40 MG IV IVPush SCH (09:14)
[2020-09-17] MEDS: POTASSIUM CHLORIDE 20 MEQ PACKET PO SCH (09:14)
[2020-09-17] MEDS: AMIODARONE 200 MG TABLET PO SCH (09:15)
[2020-09-17] MEDS: METOPROLOL TARTRATE 25 MG TAB PO SCH ×2 (09:15→21:50)
[2020-09-17] MEDS: ASPIRIN 81 MG TABLET CHEW PO SCH (09:15)
[2020-09-17] MEDS: OXYcodone/APAP 5/325MG TABLET GT PRN (09:16)
[2020-09-17] MEDS: APIXABAN 5 MG TABLET PO SCH ×2 (09:47→21:49)
[2020-09-17] MEDS ORDERED: FUROSEMIDE 40 MG/4 ML IV ONE (10:00)
[2020-09-17] MEDS: morphine SULFATE 10 MG/ML, 1ML IVPush PRN (12:13)
[2020-09-18] MEDS: INSULIN LISPRO 100 UNITS/ML, PEN SQ-INSULIN SCH ×4 (03:00→21:58)
[2020-09-18] MEDS: ALBUTEROL/IPRATROPIUM 2.5MG/0.5MG, 3 ML INLINE SCH ×6 (03:00→22:03)
[2020-09-18 04:32] LABS: BASOPHILS % (AUTO) 0 % (0-1); EOSINOPHILS % (AUTO) 2 % (1-7); LYMPHOCYTES % (AUTO) 10 % (22-44); MEAN CORPUSCULAR HEMOGLOBIN 28.7 pg (27.0-34.8); MEAN CORPUSCULAR HGB CONC 31.6 g/dL (32.4-35.8); MEAN PLATELET VOLUME 8.2 fL (7.4-10.4); MONOCYTES % (AUTO) 4 % (2-9); NEUTROPHILS % (AUTO) 83 % (42-75); PLATELET COUNT 204 x10^3/uL (130-400); RED BLOOD COUNT 3.25 x10^6/uL (3.82-5.3); RED CELL DISTRIBUTION WIDTH 17.1 % (9.6-15.2)
[2020-09-18 04:33] LABS: MD NO
[2020-09-18 04:43] LABS: ALANINE AMINOTRANSFERASE 26 U/L (12-78); ALBUMIN 1.9 g/dL (3.4-5.0); ANION GAP 7 mmol/L (5-15); CALCIUM 8.4 mg/dL (8.5-10.1); CHLORIDE 118 mmol/L (98-107); CREATININE 0.65 mg/dL (0.55-1.02); TRIGLYCERIDES 131 mg/dL (50-200)
[2020-09-18 04:45] LABS: ALKALINE PHOSPHATASE 74 U/L (45-117); BILIRUBIN,TOTAL 0.4 mg/dL (0.2-1.0); TOTAL PROTEIN 6.1 g/dL (6.4-8.2)
[2020-09-18] MEDS: SENNA/DOCUSATE TABLET PO SCH (09:00)
[2020-09-18] MEDS: METOPROLOL TARTRATE 25 MG TAB PO SCH ×2 (09:34→21:58)
[2020-09-18] MEDS: PANTOPRAZOLE 40 MG IV IVPush SCH (09:34)
[2020-09-18] MEDS: AMIODARONE 200 MG TABLET PO SCH (09:34)
[2020-09-18] MEDS: APIXABAN 5 MG TABLET PO SCH ×2 (09:34→21:57)
[2020-09-18] MEDS: INSULIN GLARGINE 100 UNITS/ML, PEN SQ-INSULIN SCH ×2 (09:35→21:58)
[2020-09-18] MEDS: POTASSIUM CHLORIDE 20 MEQ PACKET PO SCH ×2 (10:50→21:57)
[2020-09-19] MEDS: ALBUTEROL/IPRATROPIUM 2.5MG/0.5MG, 3 ML INLINE SCH ×5 (02:29→21:00)
[2020-09-19] MEDS: INSULIN LISPRO 100 UNITS/ML, PEN SQ-INSULIN SCH ×4 (03:57→21:29)
[2020-09-19 04:56] LABS: BASOPHILS % (AUTO) 1 % (0-1); EOSINOPHILS % (AUTO) 3 % (1-7); LYMPHOCYTES % (AUTO) 11 % (22-44); MEAN CORPUSCULAR HEMOGLOBIN 28.5 pg (27.0-34.8); MEAN CORPUSCULAR HGB CONC 31.4 g/dL (32.4-35.8); MEAN PLATELET VOLUME 8.1 fL (7.4-10.4); MONOCYTES % (AUTO) 5 % (2-9); NEUTROPHILS % (AUTO) 80 % (42-75); PLATELET COUNT 231 x10^3/uL (130-400); RED BLOOD COUNT 3.29 x10^6/uL (3.82-5.3); RED CELL DISTRIBUTION WIDTH 17.7 % (9.6-15.2)
[2020-09-19 05:04] LABS: MD NO
[2020-09-19 05:13] LABS: ANION GAP 6 mmol/L (5-15); CALCIUM 8.3 mg/dL (8.5-10.1); CHLORIDE 119 mmol/L (98-107)
[2020-09-19 05:15] LABS: CREATININE 0.67 mg/dL (0.55-1.02)
[2020-09-19] MEDS: ASPIRIN 81 MG TABLET CHEW PO SCH (05:37)
[2020-09-19] MEDS: SENNA/DOCUSATE TABLET PO SCH (09:00)
--- NOTE | 2020-09-19 10:07 | NUR ---
TF per RD recs (updated 09/19): Vital HP w/ end goal rate of 60mL/hr (on propofol); 65mL/hr (OFF propofol) Addendum: 09/19/20 at [address] Amended: Links added.
[2020-09-19] MEDS: ACETAMINOPHEN 325 MG TABLET PO PRN (10:18)
[2020-09-19] MEDS: PANTOPRAZOLE 40 MG IV IVPush SCH (10:18)
[2020-09-19] MEDS: AMIODARONE 200 MG TABLET PO SCH (10:19)
[2020-09-19] MEDS: APIXABAN 5 MG TABLET PO SCH ×2 (10:19→21:28)
[2020-09-19] MEDS: INSULIN GLARGINE 100 UNITS/ML, PEN SQ-INSULIN SCH ×2 (10:20→21:29)
[2020-09-19] MEDS: morphine SULFATE 10 MG/ML, 1ML IVPush PRN (15:00)
[2020-09-19] MEDS: METOPROLOL TARTRATE 25 MG TAB PO SCH (21:28)
[2020-09-20] MEDS: INSULIN LISPRO 100 UNITS/ML, PEN SQ-INSULIN SCH ×4 (03:00→20:36)
[2020-09-20 04:41] LABS: BASOPHILS % (AUTO) 1 % (0-1); EOSINOPHILS % (AUTO) 2 % (1-7); LYMPHOCYTES % (AUTO) 8 % (22-44); MEAN CORPUSCULAR HEMOGLOBIN 28.2 pg (27.0-34.8); MEAN PLATELET VOLUME 7.8 fL (7.4-10.4); MONOCYTES % (AUTO) 3 % (2-9); NEUTROPHILS % (AUTO) 85 % (42-75); PLATELET COUNT 272 x10^3/uL (130-400); RED BLOOD COUNT 3.63 x10^6/uL (3.82-5.3); RED CELL DISTRIBUTION WIDTH 17.5 % (9.6-15.2)
[2020-09-20 04:42] LABS: MD NO
[2020-09-20 04:48] LABS: ANION GAP 5 mmol/L (5-15); CALCIUM 8.8 mg/dL (8.5-10.1); CHLORIDE 120 mmol/L (98-107); CREATININE 0.66 mg/dL (0.55-1.02)
[2020-09-20] MEDS: ASPIRIN 81 MG TABLET CHEW PO SCH (05:40)
[2020-09-20] MEDS: ALBUTEROL/IPRATROPIUM 2.5MG/0.5MG, 3 ML INLINE SCH ×2 (06:40→19:53)
[2020-09-20] MEDS: SENNA/DOCUSATE TABLET PO SCH (08:43)
[2020-09-20] MEDS: INSULIN GLARGINE 100 UNITS/ML, PEN SQ-INSULIN SCH ×2 (09:30→20:37)
[2020-09-20] MEDS: PANTOPRAZOLE 40 MG IV IVPush SCH (09:31)
[2020-09-20] MEDS: APIXABAN 5 MG TABLET PO SCH ×2 (09:31→20:42)
[2020-09-20] MEDS: AMIODARONE 200 MG TABLET PO SCH (09:31)
[2020-09-20] MEDS: METOPROLOL TARTRATE 25 MG TAB PO SCH ×2 (09:31→20:41)
[2020-09-21] MEDS: INSULIN LISPRO 100 UNITS/ML, PEN SQ-INSULIN SCH ×4 (03:46→22:18)
[2020-09-21 04:17] LABS: BASOPHILS % (AUTO) 1 % (0-1); EOSINOPHILS % (AUTO) 3 % (1-7); LYMPHOCYTES % (AUTO) 11 % (22-44); MEAN CORPUSCULAR HEMOGLOBIN 28.6 pg (27.0-34.8); MEAN CORPUSCULAR HGB CONC 31.1 g/dL (32.4-35.8); MEAN PLATELET VOLUME 7.8 fL (7.4-10.4); MONOCYTES % (AUTO) 5 % (2-9); NEUTROPHILS % (AUTO) 81 % (42-75); PLATELET COUNT 256 x10^3/uL (130-400); RED CELL DISTRIBUTION WIDTH 17.1 % (9.6-15.2)
[2020-09-21 04:22] LABS: MD NO
[2020-09-21 04:29] LABS: ANION GAP 7 mmol/L (5-15); CALCIUM 8.6 mg/dL (8.5-10.1); CHLORIDE 121 mmol/L (98-107); CREATININE 0.68 mg/dL (0.55-1.02); TRIGLYCERIDES 93 mg/dL (50-200)
[2020-09-21] MEDS: ASPIRIN 81 MG TABLET CHEW PO SCH (05:19)
[2020-09-21] MEDS: ALBUTEROL/IPRATROPIUM 2.5MG/0.5MG, 3 ML INLINE SCH ×2 (06:49→21:00)
[2020-09-21] MEDS: SENNA/DOCUSATE TABLET PO SCH (07:10)
[2020-09-21] MEDS: POTASSIUM CHLORIDE 20 MEQ PACKET PO SCH ×2 (08:54→22:18)
[2020-09-21] MEDS: METOPROLOL TARTRATE 25 MG TAB PO SCH ×2 (08:55→22:18)
[2020-09-21] MEDS: AMIODARONE 200 MG TABLET PO SCH (08:55)
[2020-09-21] MEDS: APIXABAN 5 MG TABLET PO SCH ×2 (08:55→22:17)
[2020-09-21] MEDS: PANTOPRAZOLE 40 MG IV IVPush SCH (08:55)
[2020-09-21] MEDS: INSULIN GLARGINE 100 UNITS/ML, PEN SQ-INSULIN SCH ×2 (09:08→22:19)
[2020-09-21 10:06] LABS: CLOSTRIDIUM DIFFICILE ANTIGEN NEGATIVE; CLOSTRIDIUM DIFFICILE TOXIN NEGATIVE (Negative)
[2020-09-21] MEDS ORDERED: ALBUMIN HUMAN 5% 500 ML IV ONE (12:00)
[2020-09-21] MEDS ORDERED: LOPERAMIDE 1 MG/7.5 ML LIQUID PO ONE (15:00)
[2020-09-21] MEDS ORDERED: LOPERAMIDE 1 MG/5 ML, 10ML UDC PO PRN (21:00)
[2020-09-21] MEDS ORDERED: LOPERAMIDE 2 MG CAPSULE PO PRN (21:30)
[2020-09-22] MEDS: INSULIN LISPRO 100 UNITS/ML, PEN SQ-INSULIN SCH ×4 (05:00→19:26)
[2020-09-22 05:09] LABS: BASOPHILS % (AUTO) 1 % (0-1); EOSINOPHILS % (AUTO) 3 % (1-7); LYMPHOCYTES % (AUTO) 13 % (22-44); MEAN CORPUSCULAR HEMOGLOBIN 28.4 pg (27.0-34.8); MEAN CORPUSCULAR HGB CONC 31.2 g/dL (32.4-35.8); MEAN PLATELET VOLUME 7.9 fL (7.4-10.4); MONOCYTES % (AUTO) 5 % (2-9); NEUTROPHILS % (AUTO) 79 % (42-75); PLATELET COUNT 234 x10^3/uL (130-400); RED BLOOD COUNT 3.38 x10^6/uL (3.82-5.3); RED CELL DISTRIBUTION WIDTH 17.2 % (9.6-15.2)
[2020-09-22 05:11] LABS: MD NO
[2020-09-22 05:23] LABS: ALBUMIN 2.1 g/dL (3.4-5.0); ANION GAP 10 mmol/L (5-15); CALCIUM 8.5 mg/dL (8.5-10.1); CHLORIDE 114 mmol/L (98-107)
[2020-09-22 05:29] LABS: ALANINE AMINOTRANSFERASE 34 U/L (12-78); ALKALINE PHOSPHATASE 65 U/L (45-117); BILIRUBIN, DIRECT 0.1 mg/dL (0.1-0.2); BILIRUBIN,INDIRECT 0.2 mg/dL (0.0-2.0); BILIRUBIN,TOTAL 0.3 mg/dL (0.2-1.0); CREATININE 0.59 mg/dL (0.55-1.02); TOTAL PROTEIN 5.9 g/dL (6.4-8.2)
[2020-09-22] MEDS: ASPIRIN 81 MG TABLET CHEW PO SCH (05:54)
[2020-09-22] MEDS: SENNA/DOCUSATE TABLET PO SCH (08:15)
[2020-09-22] MEDS ORDERED: LOPERAMIDE 1 MG/7.5 ML LIQUID PO ONE (09:00)
[2020-09-22] MEDS: ALBUTEROL/IPRATROPIUM 2.5MG/0.5MG, 3 ML INLINE SCH (09:00)
[2020-09-22] MEDS: APIXABAN 5 MG TABLET PO SCH ×2 (09:10→19:32)
[2020-09-22] MEDS: INSULIN GLARGINE 100 UNITS/ML, PEN SQ-INSULIN SCH ×2 (09:10→19:26)
[2020-09-22] MEDS: METOPROLOL TARTRATE 25 MG TAB PO SCH ×2 (09:11→19:33)
[2020-09-22] MEDS: AMIODARONE 200 MG TABLET PO SCH (09:11)
[2020-09-22] MEDS: POTASSIUM CHLORIDE 20 MEQ PACKET PO SCH ×2 (09:11→19:32)
[2020-09-22] MEDS: PANTOPRAZOLE 40 MG IV IVPush SCH (09:11)
[2020-09-22] MEDS ORDERED: INSU100I13 SQ-INSULIN (12:48)
[2020-09-22] MEDS ORDERED: AMIO200T42 PO (12:48)
[2020-09-22] MEDS ORDERED: METO25TA35 PO (12:48)
[2020-09-22] MEDS ORDERED: INSU100I11 SQ-INSULIN (12:48)
[2020-09-22] MEDS ORDERED: LOPE2CAP PO (12:48)
[2020-09-22] MEDS ORDERED: LIDO10VI34 ENDO (12:48)
[2020-09-22] MEDS ORDERED: APIX5TAB PO (12:48)
[2020-09-22] MEDS ORDERED: PANT40VI IVPush (12:48)
[2020-09-22] MEDS ORDERED: IPRA3AMP30 INLINE (12:48)
[2020-09-22] MEDS ORDERED: OXYC1TAB14 GT (12:48)
[2020-09-22] MEDS ORDERED: ASPI-963 PO (12:48)
== END 2020-09-22 21:27 | DRG 4 ==
LOC: ED 18:19 → EDIP 21:11 → 5SO 22:32 → CCU 08-31 08:32
PROVIDERS: ADMIT Family Medicine; ATTEND Internal Medicine
PROC: 5A0935A Assistance with Respiratory Ventilation, Less than 24 Consecutive Hours, High Flow/Velocity Cannula (ICD-10-PCS; 2020-08-30)
PROC: 5A1955Z Respiratory Ventilation, Greater than 96 Consecutive Hours (ICD-10-PCS; 2020-08-31)
PROC: 0BH17EZ Insertion of Endotracheal Airway into Trachea, Via Natural or Artificial Opening (ICD-10-PCS; 2020-08-31)
PROC: XW033E5 Introduction of Remdesivir Anti-infective into Peripheral Vein, Percutaneous Approach, New Technology Group 5 (ICD-10-PCS; 2020-09-01)
PROC: 5A1955Z Respiratory Ventilation, Greater than 96 Consecutive Hours (ICD-10-PCS; 2020-09-11)
PROC: 0BH17EZ Insertion of Endotracheal Airway into Trachea, Via Natural or Artificial Opening (ICD-10-PCS; 2020-09-11)
PROC: 0B113F4 Bypass Trachea to Cutaneous with Tracheostomy Device, Percutaneous Approach (ICD-10-PCS; principal; 2020-09-13)
PROC: 0BJ08ZZ Inspection of Tracheobronchial Tree, Via Natural or Artificial Opening Endoscopic (ICD-10-PCS; 2020-09-13)
PROC: 0DH63UZ Insertion of Feeding Device into Stomach, Percutaneous Approach (ICD-10-PCS; 2020-09-15)
DX: A41.89 Other specified sepsis (principal); G93.41 Metabolic encephalopathy; I21.A1 Myocardial infarction type 2; J12.82 Pneumonia due to coronavirus disease 2019; J15.6 Pneumonia due to other Gram-negative bacteria; J81.0 Acute pulmonary edema; J96.01 Acute respiratory failure with hypoxia; N17.0 Acute kidney failure with tubular necrosis; U07.1 COVID-19; D62 Acute posthemorrhagic anemia; E46 Unspecified protein-calorie malnutrition; E87.0 Hyperosmolality and hypernatremia; I48.20 Chronic atrial fibrillation, unspecified; K22.10 Ulcer of esophagus without bleeding; D68.69 Other thrombophilia; Z99.11 Dependence on respirator [ventilator] status; E66.01 Morbid (severe) obesity due to excess calories; E87.6 Hypokalemia; I10 Essential (primary) hypertension; I48.0 Paroxysmal atrial fibrillation; R73.9 Hyperglycemia, unspecified; J45.909 Unspecified asthma, uncomplicated; M79.7 Fibromyalgia; T38.0X5A Adverse effect of glucocorticoids and synthetic analogues, initial encounter; Z68.34 Body mass index [BMI] 34.0-34.9, adult; Y92.89 Other specified places as the place of occurrence of the external cause; Z79.01 Long term (current) use of anticoagulants; Z87.19 Personal history of other diseases of the digestive system
CPT/HCPCS: 36415; 36600; 70450; 70551; 71045; 71275; 80048; 80053; 80061; 80076; 80202; 81001; 82140; 82150; 82728; 82803; 82962; 83036; 83605; 83615; 83690; 83735; 83880; 84145; 84443; 84478; 84484; 85025; 85379; 85384; 85520; 87040; 87070; 87077; 87081; 87086; 87186; 87205; 87324; 87400; 87635; 93005; 93306; 94002; 94003; 94640; 96365; 96375; 99291; B4087; G0378; J0456; J0696; J1100; J1644; J1650; J1940; J2250; J2543; J2704; J3010; J3370; J3480; J7060; P9045; P9047; Q9967; C9113; J0282; J0360; J1815; J2060; J2270; J7030; J7040; J7050; U0003